=== PATIENT | male | born 1985 | race African-American/Black ===

== ENCOUNTER 2017-01-23 10:18 | Emergency (ER) | payer OTHER ==
[~2017-01-23] VITALS: Ht 200.7 cm; Wt 135.6 kg
[2017-01-23] MEDS ORDERED: MOBIC15 MG PO (11:51)
[2017-01-23 12:20] VITALS: BP 132/88
== END 2017-01-23 12:21 | disposition home or self-care (01) ==
LOC: ER 10:18
DX: S83.92XA Sprain of unspecified site of left knee, initial encounter (principal); S43.402A Unspecified sprain of left shoulder joint, initial encounter; F10.99 Alcohol use, unspecified with unspecified alcohol-induced disorder; V49.9XXA Car occupant (driver) (passenger) injured in unspecified traffic accident, initial encounter; Y93.89 Activity, other specified; Y92.89 Other specified places as the place of occurrence of the external cause; Y99.8 Other external cause status

== ENCOUNTER 2017-07-21 13:29 | Emergency (ER) | payer OTHER ==
[~2017-07-21] VITALS: Ht 200.7 cm; Wt 136.1 kg
[~2017-07-21 13:29] MED LIST: MOBIC15 MG PO
[2017-07-21] MEDS ORDERED: NAPROSYN500 MG PO (14:01)
[2017-07-21 15:12] VITALS: BP 132/79
== END 2017-07-21 15:13 | disposition home or self-care (01) ==
LOC: ER 13:29
DX: S86.011A Strain of right Achilles tendon, initial encounter (principal); F10.99 Alcohol use, unspecified with unspecified alcohol-induced disorder; W51.XXXA Accidental striking against or bumped into by another person, initial encounter; Y93.67 Activity, basketball; Y92.89 Other specified places as the place of occurrence of the external cause; Y99.8 Other external cause status